=== PATIENT | male | born 1970 ===

== ENCOUNTER 2018-05-11 08:40 | Emergency (ER) | payer OTHER ==
[2018-05-11 09:04] VITALS: BP 158/95; PULSE 75; RESP 18; TEMP 98.7; O2SAT 97
--- NOTE | 2018-05-11 09:45 | ED PDOC ---
HPI: Eye Injury/Pain Time Seen by Provider: 05/11/18 09:25 Chief Complaint (Nursing): Eye Problem Chief Complaint (Provider): Left eyelid swelling History Per: Patient History/Exam Limitations: no limitations Onset/Duration Of Symptoms: Days (3) Current Symptoms Are (Timing): Still Present Associated Symptoms: Swelling, Itching, Discharge From Eye. denies: Decreased Vision, FB Sensation Additional History Per: Patient Additional Complaint(s): 47yo male, comes to ER reporting left eyelid swelling and pain, as well as discharge and itching from the eye x 3 days. Patient states the pain and swelling worsened since yesterday, prompting the ER visit. Patient denies any foreign body sensation, vision changes, and states he does not wear contact lenses. No other complaints. PMD: None Past Medical History Reviewed: Historical Data, Nursing Documentation, Vital Signs Vital Signs: Last Vital Signs Temp 98.7 F 05/11/18 09:01 Pulse 75 05/11/18 09:01 Resp 18 05/11/18 09:01 BP 158/95 H 05/11/18 09:01 Pulse Ox 97 05/11/18 09:01 - Medical History PMH: No Chronic Diseases - Surgical History Surgical History: No Surg Hx - Family History Family History: States: No Known Family Hx - Living Arrangements Living Arrangements: With Family - Immunization History Hx Tetanus Toxoid Vaccination: No Hx Influenza Vaccination: No Hx Pneumococcal Vaccination: No - Home Medications Home Medications: Ambulatory Orders Medication Instructions Recorded Clindamycin [Cleocin] 300 mg PO TID #21 cap 05/11/18 Tobramycin 0.3% [Tobrex 0.3% Ophth 1 drop OP Q4 #1 bottle 05/11/18 Soln] - Allergies Allergies/Adverse Reactions: Allergies Allergy/AdvReac Type Severity Reaction Status Date / Time No Known Allergies Allergy Verified 05/11/18 09:06 Review of Systems ROS Statement: Except As Marked, All Systems Reviewed And Found Negative Constitutional: Negative for: Fever, Chills Eyes: Positive for: Eyelid Inflammation (left). Negative for: Vision Change Physical Exam - Reviewed Nursing Documentation Reviewed: Yes Vital Signs Reviewed: Yes - Physical Exam Appears: Positive for: Non-toxic, No Acute Distress Head Exam: Positive for: ATRAUMATIC, NORMAL INSPECTION, NORMOCEPHALIC Skin: Positive for: Normal Color Eye Exam: Positive for: EOMI, PERRL, Conjunctival injection (mild right conjunctival injection), Other (right lateral upper eyelid swelling and mild erythema). Negative for: Periorbital swelling, Periorbital tenderness Neurologic/Psych: Positive for: Alert, Oriented. Negative for: Motor/Sensory Deficits - ECG O2 Sat by Pulse Oximetry: 97 (RA) Pulse Ox Interpretation: Normal Medical Decision Making Medical Decision Making: Impression: Hordeolum, conjunctivitis Plan: -- Visual acuity 0947 Visual acuity as follows: Left eye: 20/25 Right eye: 20/50 Bilatera: 20/20 Discussed with patient regarding applying warm compress to the eyes; instructed to use eye drops as prescribed. Patient to be discharged home and instructed to follow up with PMD in 2-3 days. Scribe Attestation: Documented by Neda Liu, acting as a scribe for Mckenna Zimmer MD. Provider Scribe Attestation: All medical record entries made by the Scribe were at my direction and personally dictated by me. I have reviewed the chart and agree that the record accurately reflects my personal performance of the history, physical exam, medical decision making, and the department course for this patient. I have also personally directed, reviewed, and agree with the discharge instructions and disposition. Disposition - Clinical Impression Clinical Impression: Eye infection, Conjunctivitis, Stye external - Patient ED Disposition Is Patient to be Admitted: No - Disposition Referrals: Denzel Palma MD [Staff Provider] - Disposition: Routine/Home Disposition Time: 09:48 Condition: GOOD Additional Instructions: ESTEBAN OWEN, thank you for letting us take care of you today. Your provider was Mckenna Zimmer MD and you were treated for LT EYE PAIN, HEADACHE. The emergency medical care you received today was directed at your acute symptoms. If you were prescribed any medication, please fill it and take as directed. It may take several days for your symptoms to resolve. Return to the Emergency Department if your symptoms worsen, do not improve, or if you have any other problems. Please contact your doctor or call one of the physicians/clinics you have been referred to that are listed on the Patient Visit Information form that is included in your discharge packet. Bring any paperwork you were given at discharge with you along with any medications you are taking to your follow up visit. Our treatment cannot replace ongoing medical care by a primary care provider outside of the emergency department. Thank you for allowing the [facility] team to be part of your care today. If you had an X-Ray or CT scan: A Radiologist will review the ED reading if any change in treatment is needed we will contact you. If you had a blood, urine, or wound culture: It will take several days for the results, if any change in treatment is needed we will contact you. If you had an STI test: It will take 48 hours for the results. Please call after 1 week if you have not heard back. Prescriptions: Clindamycin [Cleocin] 300 mg PO TID #21 cap Tobramycin 0.3% [Tobrex 0.3% Ophth Soln] 1 drop OP Q4 #1 bottle Instructions: Conjunctivitis (Pinkeye), Stye (Hordeolum)
== END 2018-05-11 10:08 | disposition home or self-care (01) ==
LOC: H.ER 08:40
DX: H10.9 Unspecified conjunctivitis (principal); H00.016 Hordeolum externum left eye, unspecified eyelid; H44.002 Unspecified purulent endophthalmitis, left eye